=== PATIENT | male | born 1985 | race Caucasian/White ===

== ENCOUNTER 2016-11-17 01:51 | Emergency (ER) | payer OTHER ==
[~2016-11-17 01:51] MED LIST: INDOCIN25 MG PO; NOHOMEMEDS; VALIUM5 MG PO
== END 2016-11-17 03:41 | disposition home or self-care (01) ==
LOC: EME 01:51
DX: S93.602A Unspecified sprain of left foot, initial encounter (principal); X50.0XXA Overexertion from strenuous movement or load, initial encounter
CPT/HCPCS: 73610; 73630; 99281; 99283

== ENCOUNTER 2017-01-16 12:10 | Emergency (ER) | payer OTHER ==
[~2017-01-16] VITALS: Ht 177.8 cm; Wt 91.5 kg
[2017-01-16 12:57] LABS: MCH 30.5 PG (29.0-34.0); MCHC 35.6 G/DL (30.0-36.0); MCV 85.7 FL (86-99); MEAN PLAT.VOLUME 10.4 uM^3 (9.0-12.4); NRBC (%) 0.2 /100 WBC (0-0); PLATELET COUNT 211 K/uL (156-360); RBC DIS.WIDTH-CV 11.8 % (11.8-14.6); RBC DIS.WIDTH-SD 36.6 % (39-53); RED BLOOD COUNT 5.02 M/uL (4.00-5.50); WHITE BLOOD COUNT 12.2 K/uL (4.1-10.2)
[2017-01-16 13:07] LABS: CHLORIDE 101 mEq/L (99-109); POTASSIUM 3.9 mEq/L (3.7-5.4); SODIUM 136 mEq/L (136-147)
[2017-01-16 13:10] LABS: GLUCOSE 96 mg/dL (70-99)
[2017-01-16 13:11] LABS: ANION GAP 15 MEQ/L (2-14)
[2017-01-16 13:12] LABS: TOTAL BILIRUBIN 2.1 mg/dL (0.0-1.0)
[2017-01-16 13:13] LABS: ALKALINE PHOSPHATASE 61 IU/L (3-129); GFR ESTIMATE (CALCULATED) > 59 mL/min/
[2017-01-16 13:14] LABS: UREA NITROGEN (BUN) 9 mg/dL (9-23)
[2017-01-16 13:17] LABS: LIPASE 26 U/L (1.0-51.0)
[2017-01-16 14:32] LABS: ADD MIUA? YES; BILIRUBIN NEGATIVE; BLOOD NEGATIVE; COLOR YELLOW ((YELLOW)); GLUCOSE (STRIP) NEGATIVE; KETONES 80; LEUKOCYTES NEGATIVE; NITRITE NEGATIVE; PROTEIN (STRIP) 100; UROBILINOGEN 0.2 MG/DL (0.2-1.0)
[2017-01-16 14:38] LABS: BACTERIA NONE SEEN /HPF; EPITHELIAL CELLS NONE SEEN /HPF; MUCUS TRACE /LPF; RED BLOOD CELLS 0-5 /HPF (0-5); UCUL ADDED? NO; WHITE BLOOD CELLS 0-5 /HPF (0-5)
[2017-01-16 14:46] LABS: INFLUENZA A VIRAL ANTIGEN NEGATIVE; INFLUENZA B VIRAL ANTIGEN NEGATIVE
[2017-01-16] MEDS ORDERED: PHENERGAN25 MG PR (15:15)
[2017-01-16] MEDS ORDERED: NAPROSYN500 MG PO (15:15)
[2017-01-16] MEDS ORDERED: ZOFRAN ODT4 MG PO (15:15)
[2017-01-16 15:29] VITALS: BP 125/75
== END 2017-01-16 15:31 | disposition home or self-care (01) ==
LOC: EME 12:10
PROVIDERS: Nurse Practitioner Family
DX: B34.9 Viral infection, unspecified (principal); R11.2 Nausea with vomiting, unspecified; R10.84 Generalized abdominal pain
CPT/HCPCS: 80053; 81003; 83690; 85027; 87502; 99281; 99285; J1885; J2405; J7030